=== PATIENT | female | born 1965 | race Caucasian/White ===

== ENCOUNTER 2017-10-31 16:14 | Emergency (ER) | payer OTHER, BC ==
--- NOTE | 2017-10-31 16:20 | PDOC ---
Rapid Medical Evaluation Time Seen by Provider: 10/31/17 16:16 Medical Evaluation: I have performed a brief in-person evaluation of this patient. The patient presents with a chief complaint of: right forehead and upper eye pain today. Now with right eyeball Pertinent physical exam findings: Minimal swelling to right upper lid. red eye injected. No ptosis. No proptosis. EOMI, PERRLA. I have ordered the following: nothing The patient will proceed to the ED for further evaluation. Discharge Disposition - Diagnosis Conjunctivitis - Referrals Referrals: Elliot Macdonald [Primary Care Provider] - - Patient Instructions - Post Discharge Activity
[2017-10-31 16:24] VITALS: BP 126/75; PULSE 105; TEMP 98; BMI 22.2
--- NOTE | 2017-10-31 16:54 | PDOC ---
History of Present Illness - General Chief Complaint: Eye Problem Stated Complaint: Eye Problem Time Seen by Provider: 10/31/17 16:16 History Source: Patient Exam Limitations: No Limitations - History of Present Illness Initial Comments: 10/31/17 16:57 Chief complaint: Eye irritation Patient is a 52-year-old female who states that she was at lunch today with her friends, felt a pain to the back of her eye and then noticed that there was some redness to the eye. No visual issues. Patient does wear glasses had last eye exam within the last year. Patient not wear contact lenses. GENERAL/CONSTITUTIONAL: No fever, weakness. dizziness HEAD, EYES, EARS, NOSE AND THROAT: No change in vision. +eye redness. No ear pain or discharge. No sore throat. CARDIOVASCULAR: No chest pain RESPIRATORY: No shortness of breath or cough GASTROINTESTINAL: No pain, nausea, vomiting, diarrhea or constipation GENITOURINARY: No dysuria MUSCULOSKELETAL: No neck or back pain SKIN: No rash NEUROLOGIC: No headache, vertigo, loss of consciousness, or loss of sensation. GENERAL: The patient is awake, alert, and fully oriented, in no acute distress. HEAD: Normal with no signs of trauma. EYES: Pupils equal, round and reactive to light, sclera anicteric, conjunctiva clear. No visual field cuts, palpation of eyes shows even pressure, soft ENT: pharynx: no erythema, no exudate, uvula midline NECK: supple CHEST: clear, nontender, rr EXTREMITIES: Normal range of motion, no edema. NEUROLOGICAL: Normal speech, normal gait. SKIN: Warm, Dry Past History - Past Medical History Allergies/Adverse Reactions: Allergies Allergy/AdvReac Type Severity Reaction Status Date / Time No Known Allergies Allergy Verified 10/31/17 16:18 Home Medications: Ambulatory Orders NK [No Known Home Medication] 10/31/17 COPD: No - Suicide/Smoking/Psychosocial Hx Smoking History: Never smoked Have you smoked in the past 12 months: Yes Number of Cigarettes Smoked Daily: 1 Information on smoking cessation initiated: Yes 'Breaking Loose' booklet given: 10/31/17 Hx Alcohol Use: No Drug/Substance Use Hx: No Substance Use Type: None *Physical Exam - Vital Signs Last Vital Signs Temp Pulse Resp BP Pulse Ox 98.0 F 105 H 18 126/75 100 10/31/17 16:19 10/31/17 16:19 10/31/17 16:19 10/31/17 16:19 10/31/17 16:19 Medical Decision Making - Medical Decision Making 10/31/17 17:10 52-year-old female with soap conjunctiva hemorrhage, no visual issues, some discomfort to the upper eyelid. No trauma to the eye, no history of any potential foreign body. No visual field cuts. Vision is intact 20/25 bilaterally. Discussed history, case, clinical findings with auriculotherapist, Dr. Soares who recommended artificial tears and ophthalmology follow-up. *DC/Admit/Observation/Transfer Diagnosis at time of Disposition: Subconjunctival hemorrhage of right eye - Discharge Dispostion Disposition: HOME Condition at time of disposition: Stable Decision to Admit order: No - Referrals Referrals: Elliot Macdonald [Primary Care Provider] - Fransisco Soares MD [Staff Physician] - - Patient Instructions Additional Instructions: Use artificial tears Follow-up with either Dr. Soares or your auriculotherapist tomorrow Return to the ER if having any kind of visual problem - Post Discharge Activity
== END 2017-10-31 16:58 | disposition home or self-care (01) ==
LOC: JERFT 16:14
DX: H11.31 Conjunctival hemorrhage, right eye (principal)
CPT/HCPCS: 99281-25